=== PATIENT | male | born 1945 | race Caucasian/White ===

== ENCOUNTER → 2021-08-06 16:37 | Outpatient (BNVA) | payer OTHER, SELFPAY | PROVIDERS: Visit Provider Emergency Medicine | DX: R05.9 Cough, unspecified (principal); R06.02 Shortness of breath | CPT/HCPCS: 71046; 87400; 87635 ==

== ENCOUNTER → 2021-12-23 10:15 | Outpatient (BNVA) | payer OTHER, SELFPAY | PROVIDERS: Visit Provider Emergency Medicine | DX: R07.81 Pleurodynia (principal); M25.551 Pain in right hip | CPT/HCPCS: 71101; 73502 ==

== ENCOUNTER → 2022-08-12 13:03 | Outpatient (BNVA) | payer MEDICARE, SELFPAY | PROVIDERS: Visit Provider Emergency Medicine | DX: M79.652 Pain in left thigh (principal) | CPT/HCPCS: 73552 ==

== ENCOUNTER → 2022-08-18 14:05 | Outpatient (BNVA) | payer MEDICARE, SELFPAY | PROVIDERS: Visit Provider Emergency Medicine | DX: M54.50 Low back pain, unspecified (principal) | CPT/HCPCS: 72170 ==